=== PATIENT | female | born 1955 | race Caucasian/White ===

== ENCOUNTER 2021-08-17 03:36 | Emergency (ER) | payer OTHER ==
[2021-08-17 05:51] LABS: HEMOGLOBIN 14.3 gm/dl (12.3-15.3); RED BLOOD COUNT 4.45 M/UL (4.00-5.10); WHITE BLOOD COUNT 6.2 K/UL (4.5-11.0)
[2021-08-17 06:04] LABS: BUN/CREATININE RATIO 12 (0-10)
[2021-08-17] MEDS ORDERED: ENDOCET 5-3251 EACH PO (06:35)
[2021-08-17] MEDS ORDERED: ZOFRAN ODT 4 MG4 MG SL (06:35)
== END 2021-08-17 07:15 | disposition home or self-care (01) ==
LOC: ER1 03:36
PROVIDERS: Emergency Medicine
DX: N13.2 Hydronephrosis with renal and ureteral calculous obstruction (principal); Z88.0 Allergy status to penicillin; M10.9 Gout, unspecified
CPT/HCPCS: 80053; 81001; 83690; 85025; 96374; 96375; 99284; J1885; J2270; J2405